=== PATIENT | male | born 1970 | race Caucasian/White ===

== ENCOUNTER 2019-02-22 15:32 | Emergency (ER) | payer MEDICARE | END 2019-02-22 16:30 | disposition home or self-care (01) | LOC: ERS 15:32 | DX: L02.31 Cutaneous abscess of buttock (principal); G47.30 Sleep apnea, unspecified; E11.9 Type 2 diabetes mellitus without complications; E78.5 Hyperlipidemia, unspecified; I10 Essential (primary) hypertension; J44.9 Chronic obstructive pulmonary disease, unspecified; F41.9 Anxiety disorder, unspecified; F32.9 Major depressive disorder, single episode, unspecified; F17.220 Nicotine dependence, chewing tobacco, uncomplicated; Z79.899 Other long term (current) drug therapy; Z79.84 Long term (current) use of oral hypoglycemic drugs; Z79.51 Long term (current) use of inhaled steroids; Z79.82 Long term (current) use of aspirin | CPT/HCPCS: 10060 ==

== ENCOUNTER 2021-12-10 23:55 | Inpatient (IN) | payer OTHER, MEDICARE ==
[2021-12-11] MEDS ORDERED: Dextrose 50% Abboject 50 ML SYRINGE SLOW IVP PRN (00:07)
[2021-12-11] MEDS ORDERED: hydrALAZINE 20 MG/ML VIAL SLOW IVP PRN (00:07)
[2021-12-11] MEDS ORDERED: Dextrose 5% in Water 1,000 ML IV PRN (00:07)
[2021-12-11] MEDS ORDERED: traMADol HCl 50 MG TAB PO PRN ×2 (00:07)
[2021-12-11] MEDS ORDERED: Ondansetron PF 4 MG/2 ML Vial IVP PRN (00:07)
[2021-12-11] MEDS ORDERED: Sodium Chloride 0.9% 1,000 ML IV SCH (00:15)
[2021-12-11] MEDS: Acetaminophen 325 MG TAB PO SCH ×4 (01:07→18:14)
[2021-12-11 04:14] LABS: SARS-CoV-2 NAA Rapid Test Not Detected (NotDetected)
[2021-12-11 06:57] LABS: #Eosinphils 0.4 thou/uL (0.0-0.7); #Monocytes 0.5 thou/uL (0.11-0.59); #Neutrophils 3.3 thou/uL (1.40-6.50); %Basophils 0.3 % (0.0-1.0); %Eosinophils 5.8 % (0.0-10.0); %Lymphocytes 32.2 % (21.0-51.0); %Monocytes 7.7 % (0.0-10.0); Mean Corpuscular HGB CONC 33.6 g/dL (32.0-36.0); Mean Corpuscular Hemoglobin 31.9 pg (27.0-31.0); Mean Corpuscular Volume 94.8 fL (78.0-98.0); Mean Platelet Volume 6.3 fL (7.4-10.4); Platelet Count 234 thou/uL (130-400); RBC Distribution Width 11.7 % (11.5-14.5); Red Blood Cell (RBC) Count 4.09 mill/uL (4.70-6.10); White Blood Cell (WBC) Count 6.1 thou/uL (4.8-10.8)
[2021-12-11 07:29] LABS: Phosphorus 4.3 mg/dL (2.3-4.7)
[2021-12-11 07:33] LABS: Anion Gap 12 mmol/L (10-20); BUN (Urea Nitrogen) 21 mg/dL (8.4-25.7); Calc. Creatinine Clearance 100 mL/min (70-130); Calcium 9.1 mg/dL (7.8-10.44); Carbon Dioxide 24 mmol/L (22-29); Chloride 107 mmol/L (98-107); Glucose 99 mg/dL (70-105); Potassium 3.7 mmol/L (3.5-5.1); Sodium 139 mmol/L (136-145)
[2021-12-11] MEDS ORDERED: Famotidine 20 MG TAB PO SCH (09:00)
[2021-12-12] MEDS: Acetaminophen 325 MG TAB PO SCH ×2 (00:12→05:53)
[2021-12-12 04:12] VITALS: BMI 26.6
[2021-12-12 08:12] LABS: #Basophils 0.1 thou/uL (0.0-0.2); #Eosinphils 0.4 thou/uL (0.0-0.7); #Lymphocytes 1.8 thou/uL (1.20-3.40); #Monocytes 0.4 thou/uL (0.11-0.59); #Neutrophils 1.9 thou/uL (1.40-6.50); %Basophils 1.3 % (0.0-1.0); %Eosinophils 9.1 % (0.0-10.0); %Lymphocytes 40.3 % (21.0-51.0); %Monocytes 7.9 % (0.0-10.0); %Neutrophils 41.5 % (42.0-75.0); Hemoglobin 13.9 g/dL (14.0-18.0); MDiff Complete? YES; Mean Corpuscular HGB CONC 32.3 g/dL (32.0-36.0); Mean Corpuscular Hemoglobin 31.6 pg (27.0-31.0); Mean Corpuscular Volume 97.7 fL (78.0-98.0); Mean Platelet Volume 6.4 fL (7.4-10.4); Platelet Count 225 thou/uL (130-400); Platelet Morphology Comment Appears Adequate; Polychromasia SLIGHT = 2-3 cells (100X) (0-2/hpf); RBC Distribution Width 11.9 % (11.5-14.5); Red Blood Cell (RBC) Count 4.38 mill/uL (4.70-6.10); Stomatocytes SLIGHT = 2-5 cells (100X) (0-1/hpf); White Blood Cell (WBC) Count 4.6 thou/uL (4.8-10.8)
[2021-12-12 08:20] VITALS: BP 116/71; TEMP 97.6
[2021-12-14] MEDS ORDERED: FLU VACC QS2021-22(6MOS UP)/PF 60 MCG/0.5 ML SYRINGE IM ONE (09:00)
== END 2021-12-12 14:06 | disposition home or self-care (01) | DRG 815 ==
LOC: SURG B 23:55 → OBSVTOIN 12-11 00:07
PROVIDERS: ADMIT Surgery; ATTEND Surgery
DX: S36.039A Unspecified laceration of spleen, initial encounter (principal); N17.9 Acute kidney failure, unspecified; Z23 Encounter for immunization; Z20.822 Contact with and (suspected) exposure to COVID-19; G47.33 Obstructive sleep apnea (adult) (pediatric); M19.90 Unspecified osteoarthritis, unspecified site; I10 Essential (primary) hypertension; F32.A Depression, unspecified; V23.0XXA Motorcycle driver injured in collision with car, pick-up truck or van in nontraffic accident, initial encounter; Z88.5 Allergy status to narcotic agent; Z88.0 Allergy status to penicillin; Z88.8 Allergy status to other drugs, medicaments and biological substances; Z79.899 Other long term (current) drug therapy
CPT/HCPCS: 36415; 36416; 80048; 83735; 84100; 85025; J7050; U0002